=== PATIENT | male | born 1955 | race Caucasian/White ===

== ENCOUNTER 2020-05-20 00:34 | Outpatient (CLI) | payer MEDICARE, SELFPAY ==
[2020-05-20 20:47] LABS: SARS-CoV-2 RNA PCR Negative
== END 2020-05-20 00:35 | disposition home or self-care (01) ==
LOC: ANHCOVIDDT 00:34
PROVIDERS: PCP Family Medicine; Visit Provider Internal Medicine Gastroenterology
DX: Z01.812 Encounter for preprocedural laboratory examination (principal); Z20.828 Contact with and (suspected) exposure to other viral communicable diseases
CPT/HCPCS: 87635; C9803; U0003

== ENCOUNTER 2025-02-13 09:28 | Emergency (ER) | payer OTHER, SELFPAY ==
[2025-02-13] MEDS: EPINEPHrine INJ 1 MG/10 ML SYRINGE XX (09:31)
--- OUTSIDE RECORDS SUMMARY | 2025-02-13 09:31 | XMS_ITS | Continuity of Care Document ---
Author Organization [facility] Address [address] [place] [address] [place] [address] Phone Care Team Providers Care Behavioral Instructor Name Role Phone Marquis Parker Unavailable Unavailable Procedures Procedure Date Office/outpatient Visit, Est Remove Foreign Body From Eye Remove Foreign Body From Eye Office/outpatient Visit, Est Remove Foreign Body From Eye Advance Directives Directive Yes / No Effective Date File Name No Information Encounters Encounter Description Practice Location Reason(s) For Visit Diagnoses Date Provider Providers Copied on Encounter Office/outpat ient Visit, Est [facility], [address] [place] [address] [address], [place], [place], [id number], [place] tel:[phone] SEC [facility] No Information Demetrio-0 9-200 8 Elena Cho. [facility], [id number] [facility] [place] , [address], [place], [place], [facility], . tel:[phone] [facility], [address] [place] [address] [address], [place], [place], [id number], [place] tel:[phone] SEC [facility] [place] No Information Demetrio-0 6-200 8 Elena Cho. [address] [facility] [address], [place], [place], [facility], [place]. tel:[phone] [facility], [address] [place] [address] [address], [place], [place], [id number], tel:[phone] SEC [facility] No Information 1-200 7 Milton Santos. [address], [place], [place], [id number], [place]. tel:[phone] Office/outpat ient Visit, Est [facility], [address], [place], [place], [id number], [place] tel:[phone] SEC [facility] No Information 5-200 7 Sultana OD South. [address] [facility] , [address], [place], [address], [place]. tel:[phone] [facility], [address], [place], [place], [id number], [place] tel:[phone] SEC [facility] No Information 8-200 7 Sultana OD South. [address] [facility] , [address], [place], [address], [place]. tel:[phone] Family History Family Member Type Diagnosis Age At Onset No Information Payers Payer name Insurance type Covered constitution party ID Edvin rivera(s) [employer] [id number] Social History Type Description Quantity Date Captured Comments Sex Male Smoking Status No Information Chief Complaint And Reason For Visit No Information Reason For Referral Reason For Referral No Information History Of Present Illness Encounter Date Complaint History Of Prese nt Illness No Information Functional Status Date Functional Assessmen t No Information Instructions Date Instruction Additional Infor mation No Information Assessments Type Assessment Date No Information Patient Care Teams Name Effective Dates (start - stop) Status Members No Information
--- NOTE | 2025-02-13 09:43 | ED.CPR ---
HPI - CPR General Chief Complaint: Cardiac Arrest/CPR Stated Complaint: full arrest Time Seen by Provider: 02/13/25 09:42 Source: EMS Mode of arrival: EMS Limitations: clinical condition History of Present Illness HPI narrative: Patient is a 69-year-old male with a fall multiple times today witnessed and then a final fall occurred at home. Family/ friends noted that he was not breathing and check for a pulse and CPR was started on scene. EMS and fire came and provided CPR with 4 epinephrine, Narcan x1 and bicarbonate x1. Patient was brought to the ER and his eyes were fixed and dilated and no signs of life. One round of CPR provided with 1 epinephrine and a pulse check. Patient initially was in PA on presentation and further had PA for a brief moment and then asystole on the pulse check. Time of 9:35 a.m.. complaint: found unresponsive, stopped breathing and collapsed during rest Onset (ago): minute(s) ( 30 minutes of CPR provided prior to arrival and another 10 minutes in the ER here makes 40 minutes total of CPR time and down time) Timing confirmed by: other ( EMS) Place: home Bystander CPR performed: Yes Downtime before ACLS arrival (mins): 30 Initial findings in the field: unresponsive, no pulse and PEA ROSC in the field: No Associated injuries: Yes ( posterior scalp occipital area has a laceration with some bleeding /fall ) Associated symptoms: other ( patient unresponsive) Known history of: other ( unknown) Treatments prior to arrival: intubation ( LMA), chest compressions, epinephrine mgs # (4), sodium bicarbonate ( 1) and glucose ( 124) Related Data Allergies Allergy/AdvReac Type Severity Reaction Status Date / Time Penicillins Allergy Intermediate hives Verified 07/14/20 14:27 Review of Systems Review of Systems: unknown due to [facility] Past Medical History Medical History Continuous tobacco abuse History of crack cocaine use Streptococcal pneumonia Social History Social History Social History: Single Smoking packs per day: 1 Smoking cigarettes per day: 20.0 Years smoked: 30 Smoking pack-years: 30.00 Smoking status: Current every day smoker Tobacco type: cigarettes Second hand tobacco smoke exposure: Yes Alcohol intake: former Substance use: former Substance use type: crack/cocaine Living arrangements: alone Occupation/Education: occupation Gender identity (if verbalized by the patient): Male Sexual Orientation (if Verbalized by the Patient): Straight or Heterosexual Spiritual care concerns: No Exam Narrative: patient unresponsive Const: General: ill appearing Nutritional Appearance: thin Limitations: other limitations ( clinical condition) HENMT: Other: fixed and dilated bilateral Chest: Other: no spontaneous respirations Resp: Other: no spontaneous respirations; LMA had good placement with bilateral chest rise Cardio: Other: no cardiac activity GI: Inspection: non-distended Skin: Other: posterior scalp laceration 3 cm linear with light bleeding Neuro: Other: bilateral dilated and fixed pupils Extrem: Other: IO in bilateral lower extremity from EMS Course Vital Signs Vital signs: Vital Signs Oxygen Delivery Bag Valve Mask 02/13/25 09:33 Oxygen Delivery Bag Valve Mask 02/13/25 09:35 MDM - Cardiac Arrest/CPR MDM Narrative Medical decision making narrative: patient is a 69-year-old male with a fall and cardiac arrest prior to arrival. CPR totaled 40 minutes. Patient was in PA and further into asystole. He was given 5 rounds of epinephrine. No signs of life during entire process. No corneal reflex, no deep pain sensation, no respiratory spontaneous, no cardiac activity and patient pronounced time of 9:35 a.m.. Critical Care Time Critical Care Time Critical Care Time: Yes Total Critical Care Time: 25 Discharge Plan Discharge Clinical Impression: Cardiopulmonary arrest Coronary artery disease Qualifiers: Coronary Disease-Associated Artery/Lesion type: unspecified vessel or lesion type [place] vs. transplanted heart: unspecified whether prairie band or transplanted heart Associated angina: unspecified whether angina present Qualified Code(s): I25.10 - Atherosclerotic heart disease of prairie band coronary artery without angina pectoris Patient Disposition: Condition: Patient Language: Yakut Prescriptions: No Action peg 3350-electrolytes [Golytely] 236-22.74-6.74 -5.86 gram recon soln 240 ml PO Q10M Qty: 4000 0RF Rx Instructions: until fecal effluent is clear; do not exceed a total volume of 2,000 mL Follow-up/Referrals: UNKNOWN,DOCTOR [Primary Care Provider] - Time of Disposition: 09:55
--- OUTSIDE RECORDS SUMMARY | 2025-02-13 09:48 | XMS_ITS | Continuity of Care Document ---
Author Organization [facility] Address [address] [place] [address] [place] [address] Phone Care Team Providers Care Policewoman Name Role Phone Marquis Parker Unavailable Unavailable Procedures Procedure Date Office/outpatient Visit, Est Remove Foreign Body From Eye Remove Foreign Body From Eye Office/outpatient Visit, Est Remove Foreign Body From Eye Advance Directives Directive Yes / No Effective Date File Name No Information Encounters Encounter Description Practice Location Reason(s) For Visit Diagnoses Date Provider Providers Copied on Encounter Office/outpat ient Visit, Est [facility], [address] [place] [address] [address], [place], [place], [id number], [place] tel:[phone] SEC [facility] No Information Demetrio-0 9-200 8 Elena Cho. [facility] [place] , [address], [place], [place], [facility], . tel:[phone] [facility], [address] [place] [address] [address], [place], [place], [id number], [place] tel:[phone] [facility] [place] No Information Demetrio-0 6-200 8 Elena Cho. [address] [facility] [place] [address], [place], [place], [facility], [place]. tel:[phone] [facility], [address] [place] [address] [address], [place], [place], [id number], tel:[phone] SEC [facility] No Information 1-200 7 Milton Santos. [address], [place], [place], [address], [place]. tel:[phone] Office/outpat ient Visit, Est [facility], [address], [place], [place], [address], [place] tel:[phone] SEC [facility] No Information 5-200 7 Sultana OD South. [address] [facility] , [address], [place], [address], [place]. tel:[phone] [facility], [address], [place], [place], [address], [place] tel:[phone] SEC [facility] No Information 8-200 7 Sultana OD South. [address] [facility] , [address], [place], [address], [place]. tel:[phone] Family History Family Member Type Diagnosis Age At Onset No Information Payers Payer name Insurance type Covered republican ID Edvin rivera(s) [employer] [id number] Social History Type Description Quantity Date Captured [...]
--- NOTE | 2025-02-13 10:41 | PC.NURSE ---
family arrived. Dr. Bocanegra speaking with patient family at this time.
--- NOTE | 2025-02-13 14:19 | PC.NURSE ---
patient cousins Sudheer Anglin whom he resided with contact [phone] and Bella Ramos [phone] contacts on patient behalf as patient
== END 2025-02-13 14:42 | disposition expired ==
PROVIDERS: Emergency Provider Emergency Medicine
DX: I46.9 Cardiac arrest, cause unspecified (principal); I25.10 Atherosclerotic heart disease of native coronary artery without angina pectoris; S01.01XA Laceration without foreign body of scalp, initial encounter; F17.210 Nicotine dependence, cigarettes, uncomplicated; W19.XXXA Unspecified fall, initial encounter
CPT/HCPCS: 92950; 96372; 99285; J0168